=== PATIENT | male | born 1995 ===

== ENCOUNTER 2019-04-04 05:47 | Day surgery (SDC) | payer OTHER ==
[~2019-04-04] VITALS: Ht 180.3 cm; Wt 84.1 kg
[2019-04-04 06:04] LABS: BASO % 0.4 % (0.0-2.0); EOS # 0.1 (0.0-0.7); EOS % 1.5 % (0-4.0); GRAN # 6.2 (1.4-6.5); GRAN % 67.9 % (42.2-75.2); HEMATOCRIT 42.2 % (42.0-52.0); HEMOGLOBIN 14.9 g/dl (13.5-18.0); LYMPH # 1.8 (1.2-3.4); MEAN CELL VOLUME 83 fl (80.0-100.0); MEAN CORPUSCULAR HEMOGLOBIN 29 pg (27.0-31.0); MEAN CORPUSCULAR HGB CONC 35 g/dl (33.0-37.0); MONO # 0.9 (0.1-0.6); MONO % 9.9 % (1.7-9.3); PLATELET COUNT 400 K/mm3 (130-400); RED BLOOD COUNT 5.06 M/mm3 (4.20-5.60); REDCELL DISTRIBUTION WIDTH-CV 12.9 % (11.5-14.5)
[2019-04-04 06:15] LABS: CALCIUM 9.9 mg/dL (8.4-10.2); CREATININE, serum 0.99 (0.66-1.25)
[2019-04-04 08:23] VITALS: BP 137/81; PULSE 88; TEMP 98.5
--- NOTE | 2019-04-04 08:23 | NUR ---
The patient arrived to [facility] from the recovery room at this time. The patient appears drowsy but arouses easily to his name. The patient reports pain at a "7" but states the pain is "better now". Post operative vital signs were started at this time. The patient's friend was brought back to be at his bedside. Call light is within reach. Will continue to monitor the patient.
[2019-04-04 08:38] VITALS: BP 126/86; PULSE 82
--- NOTE | 2019-04-04 08:38 | NUR ---
The patient appears more alert and requests to try some apple juice and applesauce at this time. Vital signs appear stable. Will continue to monitor the patient.
[2019-04-04 08:53] VITALS: BP 133/84; PULSE 86
--- NOTE | 2019-04-04 08:53 | NUR ---
The patient has finished his food and drink and appeared to tolerate both well. Vital signs remain stable. The patient's friend was contacted to help arrange a ride home for the patient upon discharge.
[2019-04-04 09:08] VITALS: BP 143/85; PULSE 98
--- NOTE | 2019-04-04 09:08 | NUR ---
The patient appears to be resting comfortably on the cart. The patient was disconnected from the dynamap and his IV was removed with a pressure dressing applied. The nurse instructed the patient to get dressed and notify the staff when he is ready to review his discharge instructions.
--- NOTE | 2019-04-04 09:35 | NUR ---
Discharge instructions were reviewed with the patient at this time. He verbalized understanding and has no questions for the nurse at this time. The patient did state that he is "out" of his pain medication. The nurse instructed the patient to contact Dr. Castro's office regarding a refill on the narcotic prescription. The patient is dressed and waiting for his ride to arrive. Will continue to monitor the patient.
[2019-04-04 09:57] VITALS: BP 131/85; PULSE 76; TEMP 98.5
--- NOTE | 2019-04-04 10:18 | NUR ---
The nurse checked in with the patient to evaluate when his ride would be arriving to the hosptial to pick him up. He stated his friend is "on post, is going to shower and then head here". Will continue to monitor the patient.
--- NOTE | 2019-04-04 10:48 | NUR ---
The patient was escorted out via wheelchair to a private vehicle by DAVID Romeo. The patient's belongings and discharge paperwork were sent with him. The patient's friend is present to drive him home.
== END 2019-04-04 10:48 | disposition home or self-care (01) ==
LOC: COL.ER 05:47 → SDCO 06:41
PROVIDERS: Emergency Medicine
DX: J95.830 Postprocedural hemorrhage of a respiratory system organ or structure following a respiratory system procedure (principal)
CPT/HCPCS: J0330; J1100; J1170; J2405; J2704; J3010; J7030